=== PATIENT | female | born 1985 | race Caucasian/White ===

== ENCOUNTER 2020-04-30 20:24 | Inpatient (IN) | payer BC ==
[2020-04-30 22:20] LABS: BASO % 0.5 % (0-2.0); EOS % 1.7 % (0-4.5); HEMATOCRIT 41.8 % (32.4-45.2); HEMOGLOBIN 13.7 GM/dL (10.7-15.3); LYMPH % 40.1 % (8-40); MCH 28.2 pg (25.7-33.7); MCHC 32.8 g/dl (32.0-36.0); MEAN PLT VOLUME 8.6 fl (7.5-11.1); MONO % 5.2 % (3.8-10.2); NEUT % 52.5 % (42.8-82.8); PLATELET COUNT 204 K/MM3 (134-434); RBC 4.87 M/mm3 (3.60-5.2); RDW 13.5 % (11.6-15.6); WHITE BLOOD COUNT 7.4 K/mm3 (4.0-10.0)
[2020-04-30 22:31] LABS: PROTHROMBIN TIME (PATIENT) 12.3 SEC (9.7-13.0)
[2020-04-30 22:33] LABS: ACTIVATED PTT 33.4 SECONDS (25.2-36.5)
[2020-04-30 22:39] LABS: POTASSIUM 4.2 mmol/L (3.5-5.1)
[2020-04-30 22:41] LABS: CALCIUM 9.3 mg/dL (8.5-10.1)
[2020-04-30 22:42] LABS: BLOOD UREA NITROGEN 8.1 mg/dL (7-18)
[2020-04-30 22:45] LABS: CREATININE 0.6 mg/dL (0.55-1.3)
[2020-04-30 22:46] LABS: BILIRUBIN,TOTAL 0.1 mg/dL (0.2-1)
[2020-04-30 22:47] LABS: TOT PROT 7.6 g/dl (6.4-8.2)
[2020-05-01] MEDS ORDERED: ACETAMINOPHEN 325 MG TABLET (FP) PO ONE (00:08)
[2020-05-01] MEDS ORDERED: ACETAMINOPHEN 325 MG TABLET (FP) ONE ×2 (00:10→14:11)
[2020-05-01] MEDS ORDERED: HEPARIN NA (PORCINE) 5,000 UNITS/ML 1ML VIAL IVPUSH ONE (01:29)
[2020-05-01] MEDS ORDERED: HEPARIN NA (PORCINE) 5,000 UNITS/ML 1ML VIAL ONE (01:44)
[2020-05-01] MEDS ORDERED: HEPARIN NA (PORCINE) 5,000 UNITS/ML 1ML VIAL IVPUSH PRN ×2 (03:22)
[2020-05-01] MEDS ORDERED: HEPARIN INFUSION - 25,000 UNITS/500 ML INFUS.BAG IVPB ONE (03:32)
[2020-05-01] MEDS: HEPARIN INFUSION - 25,000 UNITS/500 ML INFUS.BAG IVPB SCH ×2 (03:38→21:02)
[2020-05-01 06:01] LABS: HEMATOCRIT 41.5 % (32.4-45.2); HEMOGLOBIN 13.2 GM/dL (10.7-15.3); MCH 27.3 pg (25.7-33.7); MCHC 31.8 g/dl (32.0-36.0); MEAN CELL VOLUME 85.9 fl (80-96); MEAN PLT VOLUME 8.6 fl (7.5-11.1); PLATELET COUNT 194 K/MM3 (134-434); RBC 4.84 M/mm3 (3.60-5.2); RDW 13.3 % (11.6-15.6); WHITE BLOOD COUNT 7.5 K/mm3 (4.0-10.0)
[2020-05-01] MEDS ORDERED: ACETAMINOPHEN 500 MG TABLET (FP) ONE (06:27)
[2020-05-01] MEDS: ACETAMINOPHEN 500 MG TABLET (FP) PO PRN ×2 (06:32→18:52)
[2020-05-01 08:22] LABS: POTASSIUM 3.9 mmol/L (3.5-5.1)
[2020-05-01 08:24] LABS: CALCIUM 9.1 mg/dL (8.5-10.1)
[2020-05-01 08:25] LABS: BLOOD UREA NITROGEN 6.2 mg/dL (7-18)
[2020-05-01 08:28] LABS: CREATININE 0.6 mg/dL (0.55-1.3)
[2020-05-01 12:30] LABS: PHOSPHOROUS 3.6 mg/dL (2.5-4.9)
[2020-05-01 17:00] VITALS: BMI 30.4
[2020-05-02] MEDS: HEPARIN INFUSION - 25,000 UNITS/500 ML INFUS.BAG IVPB SCH (04:35)
[2020-05-02 11:37] LABS: HEMATOCRIT 41.4 % (32.4-45.2); HEMOGLOBIN 13.4 GM/dL (10.7-15.3); MCHC 32.4 g/dl (32.0-36.0); MEAN CELL VOLUME 86.4 fl (80-96); MEAN PLT VOLUME 8.4 fl (7.5-11.1); PLATELET COUNT 201 K/MM3 (134-434); RDW 13.3 % (11.6-15.6); WHITE BLOOD COUNT 6.3 K/mm3 (4.0-10.0)
[2020-05-02 11:54] LABS: POTASSIUM 4.8 mmol/L (3.5-5.1)
[2020-05-02 11:55] LABS: CALCIUM 9.4 mg/dL (8.5-10.1)
[2020-05-02 11:56] LABS: BLOOD UREA NITROGEN 9.8 mg/dL (7-18); MAGNESIUM 2.3 mg/dL (1.8-2.4)
[2020-05-02 11:59] LABS: CREATININE 0.6 mg/dL (0.55-1.3)
[2020-05-02] MEDS: ACETAMINOPHEN 500 MG TABLET (FP) PO PRN (14:48)
[2020-05-03] MEDS: HEPARIN INFUSION - 25,000 UNITS/500 ML INFUS.BAG IVPB SCH ×2 (03:30→12:00)
[2020-05-03] MEDS: ACETAMINOPHEN 500 MG TABLET (FP) PO PRN ×3 (05:49→22:04)
[2020-05-03] MEDS: PREGABALIN 25 MG CAPSULE PO SCH ×2 (17:40→22:02)
[2020-05-04] MEDS: HEPARIN INFUSION - 25,000 UNITS/500 ML INFUS.BAG IVPB SCH (05:34)
[2020-05-04] MEDS: PREGABALIN 25 MG CAPSULE PO SCH ×2 (05:34→13:50)
[2020-05-04 14:09] VITALS: BP 132/64; PULSE 95; TEMP 98.5
[2020-05-04] MEDS ORDERED: ENOXAPARIN NA (PORCINE) 80 MG/0.8 ML DISP.SYRIN SQ SCH (17:15)
== END 2020-05-04 19:08 | disposition home or self-care (01) | DRG 299 ==
LOC: JER 20:24 → JERBED 22:11 → J7W 05-01 15:58
PROVIDERS: ADMIT Hospitalist; ATTEND Internal Medicine
DX: I82.621 Acute embolism and thrombosis of deep veins of right upper extremity (principal); G93.5 Compression of brain; E88.02 Plasminogen deficiency; D68.59 Other primary thrombophilia; G43.909 Migraine, unspecified, not intractable, without status migrainosus; Z86.73 Personal history of transient ischemic attack (TIA), and cerebral infarction without residual deficits
CPT/HCPCS: 36415; 70496-TC; 70498-TC; 70551-TC; 71045-TC-FY; 71046-TC-FY; 72141-TC; 80048; 80053; 80061; 82272; 83036; 83721; 83735; 84100; 84703; 85025; 85027; 85610; 85730; 86850; 86900; 86901; 93005; 93010; 93971; 97116-GP; 97161-GP; 99285-25; C9803; J1644; U0003

== ENCOUNTER 2020-05-24 10:40 | Inpatient (IN) | payer BC ==
[2020-05-24 10:55] VITALS: BMI 30.2
[2020-05-24 14:10] LABS: BASO % 0.5 % (0-2.0); HEMATOCRIT 40.1 % (32.4-45.2); HEMOGLOBIN 13.4 GM/dL (10.7-15.3); LYMPH % 23.7 % (8-40); MCH 28.7 pg (25.7-33.7); MCHC 33.3 g/dl (32.0-36.0); MEAN CELL VOLUME 86.2 fl (80-96); MEAN PLT VOLUME 8.5 fl (7.5-11.1); MONO % 9.1 % (3.8-10.2); NEUT % 65.7 % (42.8-82.8); PLATELET COUNT 189 K/MM3 (134-434); RBC 4.66 M/mm3 (3.60-5.2); RDW 13.1 % (11.6-15.6); WHITE BLOOD COUNT 4.7 K/mm3 (4.0-10.0)
[2020-05-24 14:16] LABS: INR 1.13 (0.83-1.09); PROTHROMBIN TIME (PATIENT) 13.8 SEC (9.7-13.0)
[2020-05-24 14:19] LABS: ACTIVATED PTT 51.1 SECONDS (25.2-36.5)
[2020-05-24 14:27] LABS: CHLORIDE 106 mmol/L (98-107); POTASSIUM 4.2 mmol/L (3.5-5.1); SODIUM 138 mmol/L (136-145)
[2020-05-24 14:29] LABS: CALCIUM 9.2 mg/dL (8.5-10.1)
[2020-05-24 14:30] LABS: ALBUMIN 4.1 g/dl (3.4-5.0); ANION GAP 5 MMOL/L (8-16); BLOOD UREA NITROGEN 13.6 mg/dL (7-18); CO2 27 mmol/L (21-32); GLUCOSE,RANDOM 83 mg/dL (74-106)
[2020-05-24 14:33] LABS: CREATININE 0.7 mg/dL (0.55-1.3); SGOT/AST 15 U/L (15-37); SGPT/ALT 75 U/L (13-61)
[2020-05-24 14:34] LABS: BILIRUBIN,TOTAL 0.2 mg/dL (0.2-1)
[2020-05-24 14:35] LABS: ALK PHOS 61 U/L (45-117)
[2020-05-24] MEDS ORDERED: ACETAMINOPHEN 1000 MG/100 ML VIAL (NON FORMULARY) IVPB ONE ×2 (15:48→23:20)
[2020-05-24] MEDS ORDERED: METOCLOPRAMIDE HCL INJECTION 10 MG/2 ML VIAL IVPB ONE (15:48)
[2020-05-24] MEDS ORDERED: METOCLOPRAMIDE HCL INJECTION 10 MG/2 ML VIAL ONE (15:51)
[2020-05-24] MEDS ORDERED: ACETAMINOPHEN INJECTION 100 ML IVPB ONE (15:51)
[2020-05-24] MEDS ORDERED: guaiFENesin/CODEINE 10 ML UNIT-DOSE CUPS PO ONE (16:12)
[2020-05-24] MEDS ORDERED: guaiFENesin/D-METHORPHAN HB 10 ML UNIT-DOSE CUPS ONE (16:18)
[2020-05-24 16:55] LABS: LDH 147 U/L (84-246)
[2020-05-24] MEDS ORDERED: ALBUTEROL SO4 HFA INHALER IH PRN (18:48)
[2020-05-24] MEDS ORDERED: DEXAMETHASONE SOD PHOSPHATE 4 MG/1 ML VIAL IVPUSH ONE (18:55)
[2020-05-24] MEDS ORDERED: DEXAMETHASONE SOD PHOSPHATE 10 MG/1 ML VIAL ONE (19:01)
[2020-05-24] MEDS ORDERED: ZINC SULFATE 220 MG CAPSULE (FP) ONE (21:54)
[2020-05-24] MEDS ORDERED: ENOXAPARIN NA (PORCINE) 80 MG/0.8 ML DISP.SYRIN SQ ONE (21:54)
[2020-05-24] MEDS ORDERED: ASCORBIC ACID 500 MG TABLET (FP) ONE (21:55)
[2020-05-24] MEDS: ASCORBIC ACID 500 MG TABLET (FP) PO SCH (22:00)
[2020-05-24] MEDS: ZINC SULFATE 220 MG CAPSULE (FP) PO SCH (22:00)
[2020-05-24] MEDS: ENOXAPARIN NA (PORCINE) 80 MG/0.8 ML DISP.SYRIN SQ SCH (22:00)
[2020-05-25] MEDS ORDERED: ACETAMINOPHEN INJECTION 100 ML IVPB ONE (00:03)
[2020-05-25] MEDS ORDERED: guaiFENesin/CODEINE 10 ML UNIT-DOSE CUPS PO ONE (02:45)
[2020-05-25] MEDS ORDERED: guaiFENesin/CODEINE 5 ML UNIT-DOSE CUPS PO ONE (03:05)
[2020-05-25 06:41] VITALS: PULSE 88
[2020-05-25 06:41] LABS: BASO % 0.3 % (0-2.0); EOS % 0.1 % (0-4.5); HEMATOCRIT 39.6 % (32.4-45.2); HEMOGLOBIN 13.4 GM/dL (10.7-15.3); LYMPH % 19.7 % (8-40); MCH 29.1 pg (25.7-33.7); MCHC 33.8 g/dl (32.0-36.0); MEAN PLT VOLUME 8.3 fl (7.5-11.1); MONO % 6.2 % (3.8-10.2); NEUT % 73.7 % (42.8-82.8); PLATELET COUNT 196 K/MM3 (134-434); RDW 13.2 % (11.6-15.6); WHITE BLOOD COUNT 3.9 K/mm3 (4.0-10.0)
[2020-05-25 06:44] LABS: INR 1.11 (0.83-1.09); PROTHROMBIN TIME (PATIENT) 13.6 SEC (9.7-13.0)
[2020-05-25 06:47] LABS: ACTIVATED PTT 43.7 SECONDS (25.2-36.5)
[2020-05-25 06:57] LABS: POTASSIUM 4.4 mmol/L (3.5-5.1)
[2020-05-25 07:03] LABS: CALCIUM 9.1 mg/dL (8.5-10.1)
[2020-05-25 07:04] LABS: BLOOD UREA NITROGEN 8.4 mg/dL (7-18); MAGNESIUM 2.2 mg/dL (1.8-2.4)
[2020-05-25 07:07] LABS: CREATININE 0.6 mg/dL (0.55-1.3); PHOSPHOROUS 3.8 mg/dL (2.5-4.9)
[2020-05-25 07:08] LABS: BILIRUBIN,TOTAL 0.2 mg/dL (0.2-1)
[2020-05-25 07:09] LABS: TOT PROT 7.9 g/dl (6.4-8.2)
[2020-05-25] MEDS ORDERED: ASCORBIC ACID 500 MG TABLET (FP) ONE (09:03)
[2020-05-25] MEDS ORDERED: ZINC SULFATE 220 MG CAPSULE (FP) ONE (09:03)
[2020-05-25] MEDS ORDERED: DEXAMETHASONE SOD PHOSPHATE 10 MG/1 ML VIAL ONE (09:03)
[2020-05-25] MEDS ORDERED: ENOXAPARIN NA (PORCINE) 80 MG/0.8 ML DISP.SYRIN SQ ONE (09:04)
[2020-05-25] MEDS ORDERED: CHOLECALCIFEROL (VIT D3) 1,000 UNIT (25 MCG) TABLET ONE (09:04)
[2020-05-25] MEDS: ZINC SULFATE 220 MG CAPSULE (FP) PO SCH (09:31)
[2020-05-25] MEDS: ACETAMINOPHEN 1000 MG/100 ML VIAL (NON FORMULARY) IVPB ONE ×2 (09:31→09:33)
[2020-05-25] MEDS: ASCORBIC ACID 500 MG TABLET (FP) PO SCH (09:31)
[2020-05-25] MEDS: ENOXAPARIN NA (PORCINE) 80 MG/0.8 ML DISP.SYRIN SQ SCH (09:31)
[2020-05-25] MEDS ORDERED: DEXAMETHASONE SOD PHOSPHATE 4 MG/1 ML VIAL IVPUSH SCH (10:00)
[2020-05-25] MEDS ORDERED: CHOLECALCIFEROL (VIT D3) 1,000 UNIT (25 MCG) TABLET PO SCH (10:00)
[2020-05-25 11:02] VITALS: BP 106/56; TEMP 98.2
== END 2020-05-25 11:00 | disposition home or self-care (01) | DRG 204 ==
LOC: JER 10:40 → JERBED 17:38
PROVIDERS: ADMIT Internal Medicine; ATTEND Internal Medicine
DX: R05 Cough (principal); G93.5 Compression of brain; I82.721 Chronic embolism and thrombosis of deep veins of right upper extremity; E88.02 Plasminogen deficiency; R50.9 Fever, unspecified; R00.0 Tachycardia, unspecified; R06.02 Shortness of breath; G43.909 Migraine, unspecified, not intractable, without status migrainosus; R59.1 Generalized enlarged lymph nodes; Z86.73 Personal history of transient ischemic attack (TIA), and cerebral infarction without residual deficits
CPT/HCPCS: 36415; 71046-TC-FY; 71275-TC; 80053; 82550; 82728; 83615; 83735; 84100; 84484; 85025; 85379; 85610; 85730; 86140; 93005; 93010; 99285-25; C9803; J0131; Q9967; U0003

== ENCOUNTER 2020-12-10 11:05 | Emergency (ER) | payer BC ==
[2020-12-10 11:14] VITALS: BMI 29.6
[2020-12-10] MEDS ORDERED: ACETAMINOPHEN 1000 MG/100 ML VIAL (NON FORMULARY) IVPB ONE (11:45)
[2020-12-10] MEDS ORDERED: SODIUM CHLORIDE 0.9% 500 ML INFUS.BAG IV ONE (11:45)
[2020-12-10] MEDS ORDERED: ACETAMINOPHEN INJECTION 100 ML IVPB ONE (12:32)
[2020-12-10 12:36] LABS: BASO % 0.5 % (0-2.0); EOS % 1.4 % (0-4.5); HEMATOCRIT 43.4 % (32.4-45.2); HEMOGLOBIN 14.7 GM/dL (10.7-15.3); LYMPH % 33.7 % (8-40); MCH 28.3 pg (25.7-33.7); MCHC 33.9 g/dl (32.0-36.0); MEAN CELL VOLUME 83.4 fl (80-96); MEAN PLT VOLUME 7.9 fl (7.5-11.1); MONO % 5.9 % (3.8-10.2); NEUT % 58.5 % (42.8-82.8); PLATELET COUNT 214 10^3/uL (134-434); RBC 5.21 M/mm3 (3.60-5.2); RDW 13.5 % (11.6-15.6); WHITE BLOOD COUNT 6.4 K/mm3 (4.0-10.0)
[2020-12-10 12:59] LABS: CHLORIDE 106 mmol/L (98-107); SODIUM 139 mmol/L (136-145)
[2020-12-10 13:04] LABS: CALCIUM 9.1 mg/dL (8.5-10.1)
[2020-12-10 13:05] LABS: ANION GAP 7 MMOL/L (8-16); CO2 26 mmol/L (21-32); GLUCOSE,RANDOM 87 mg/dL (74-106); SGOT/AST 8 U/L (15-37); SGPT/ALT 18 U/L (13-61)
[2020-12-10 13:07] LABS: BILIRUBIN,TOTAL 0.2 mg/dL (0.2-1); CREATININE 0.8 mg/dL (0.55-1.3); TOT PROT 7.9 g/dl (6.4-8.2)
[2020-12-10 13:08] LABS: ALK PHOS 70 U/L (45-117)
[2020-12-10 13:19] LABS: INR 1.03 (0.83-1.09); PROTHROMBIN TIME (PATIENT) 12.5 SEC (9.7-13.0)
[2020-12-10] MEDS ORDERED: METOCLOPRAMIDE HCL INJECTION 10 MG/2 ML VIAL IVPUSH ONE (13:35)
[2020-12-10] MEDS ORDERED: METOCLOPRAMIDE HCL INJECTION 10 MG/2 ML VIAL ONE (13:50)
[2020-12-10 16:36] VITALS: BP 114/65; PULSE 68; TEMP 97.2
== END 2020-12-10 16:45 | disposition home or self-care (01) ==
LOC: JER 11:05
PROC: 3E0333Z Introduction of Anti-inflammatory into Peripheral Vein, Percutaneous Approach (ICD-10-PCS; principal; 2020-12-10)
PROC: 3E033GC Introduction of Other Therapeutic Substance into Peripheral Vein, Percutaneous Approach (ICD-10-PCS; 2020-12-10)
DX: R07.89 Other chest pain (principal)
CPT/HCPCS: 36415; 71045-TC-FY; 80053; 82550; 84484; 84703; 85025; 85379; 85610; 85730; 93005; 93010; 99285-25; J0131

== ENCOUNTER 2022-03-06 16:07 | Inpatient (IN) | payer BC ==
[2022-03-06 16:59] VITALS: BMI 30.8
[2022-03-06] MEDS ORDERED: ONDANSETRON 4 MG/2 ML VIAL IVPUSH ONE (17:49)
[2022-03-06] MEDS ORDERED: MECLIZINE HCL 25 MG TABLET (FP) PO ONE (17:49)
[2022-03-06] MEDS ORDERED: ACETAMINOPHEN 1000 MG/100 ML BAG IVPB ONE (17:51)
[2022-03-06] MEDS ORDERED: ONDANSETRON 4 MG/2 ML VIAL ONE (18:21)
[2022-03-06] MEDS ORDERED: MECLIZINE HCL 25 MG TABLET (FP) ONE (18:21)
[2022-03-06] MEDS ORDERED: ACETAMINOPHEN INJECTION 100 ML IVPB ONE (18:21)
[2022-03-06] MEDS ORDERED: METOCLOPRAMIDE HCL INJECTION 10 MG/2 ML VIAL IVPUSH ONE (18:22)
[2022-03-06 18:30] LABS: BASO % 0.2 % (0-2.0); EOS % 0.9 % (0-4.5); HEMATOCRIT 41.1 % (32.4-45.2); HEMOGLOBIN 13.8 GM/dL (10.7-15.3); LYMPH % 31.7 % (8-40); MCH 28.6 pg (25.7-33.7); MCHC 33.6 g/dl (32.0-36.0); MEAN CELL VOLUME 85.2 fl (80-96); MEAN PLT VOLUME 7.7 fl (7.5-11.1); MONO % 4.9 % (3.8-10.2); NEUT % 62.3 % (42.8-82.8); PLATELET COUNT 201 10^3/uL (134-434); RBC 4.83 M/mm3 (3.60-5.2); RDW 13.4 % (11.6-15.6); WHITE BLOOD COUNT 8.6 K/mm3 (4.0-10.0)
[2022-03-06 18:38] LABS: INR 1.1 (0.83-1.09); PROTHROMBIN TIME (PATIENT) 12.7 SEC (9.7-13.0)
[2022-03-06] MEDS ORDERED: METOCLOPRAMIDE HCL INJECTION 10 MG/2 ML VIAL ONE (18:39)
[2022-03-06 18:40] LABS: ACTIVATED PTT 35.6 SECONDS (25.2-36.5)
[2022-03-06 18:56] LABS: CHLORIDE 108 mmol/L (98-107); SODIUM 140 mmol/L (136-145)
[2022-03-06 18:58] LABS: CALCIUM 9.6 mg/dL (8.5-10.1)
[2022-03-06 18:59] LABS: ALBUMIN 3.9 g/dl (3.4-5.0); ANION GAP 7 MMOL/L (8-16); BLOOD UREA NITROGEN 11.7 mg/dL (7-18); CO2 26 mmol/L (21-32); GLUCOSE,RANDOM 91 mg/dL (74-106)
[2022-03-06 19:02] LABS: CREATININE 0.6 mg/dL (0.55-1.3); SGOT/AST 13 U/L (15-37); SGPT/ALT 18 U/L (13-61)
[2022-03-06 19:03] LABS: BILIRUBIN,TOTAL 0.1 mg/dL (0.2-1); TOT PROT 7.7 g/dl (6.4-8.2)
[2022-03-06 19:04] LABS: ALK PHOS 60 U/L (45-117)
[2022-03-06] MEDS ORDERED: ASPIRIN 325 MG TABLET PO ONE (21:22)
[2022-03-06] MEDS ORDERED: APIXABAN 2.5 MG TABLET PO SCH (22:00)
[2022-03-06] MEDS ORDERED: ASPIRIN 81 MG CHEWABLE TABLETS ONE (22:22)
[2022-03-06] MEDS ORDERED: APIXABAN 2.5 MG TABLET ONE (22:22)
[2022-03-07 00:27] LABS: HCG,QUALITATIVE URINE Negative
[2022-03-07 00:59] LABS: URINE APPEARANCE CLEAR; URINE BILIRUBIN NEGATIVE (NEGATIVE); URINE COLOR YELLOW; URINE GLUCOSE (UA) NEGATIVE (NEGATIVE); URINE KETONE NEGATIVE (NEGATIVE); URINE LEUK ESTERASE NEGATIVE (NEGATIVE); URINE NITRITE NEGATIVE (NEGATIVE); URINE PROTEIN NEGATIVE (NEGATIVE); URINE UROBILINOGEN 0.2 mg/dL (0.2-1.0)
[2022-03-07 05:52] LABS: BASO % 0.4 % (0-2.0); EOS % 1.8 % (0-4.5); HEMATOCRIT 39.5 % (32.4-45.2); HEMOGLOBIN 12.9 GM/dL (10.7-15.3); LYMPH % 43.2 % (8-40); MCH 27.8 pg (25.7-33.7); MCHC 32.6 g/dl (32.0-36.0); MEAN CELL VOLUME 85.4 fl (80-96); MEAN PLT VOLUME 8.4 fl (7.5-11.1); MONO % 6.8 % (3.8-10.2); NEUT % 47.8 % (42.8-82.8); PLATELET COUNT 193 10^3/uL (134-434); RBC 4.63 M/mm3 (3.60-5.2); RDW 13.4 % (11.6-15.6); WHITE BLOOD COUNT 6.9 K/mm3 (4.0-10.0)
[2022-03-07 06:22] LABS: CALCIUM 8.4 mg/dL (8.5-10.1)
[2022-03-07 06:23] LABS: ALBUMIN 3.3 g/dl (3.4-5.0); BLOOD UREA NITROGEN 13.5 mg/dL (7-18)
[2022-03-07 06:28] LABS: BILIRUBIN,TOTAL 0.3 mg/dL (0.2-1); CREATININE 0.7 mg/dL (0.55-1.3); PHOSPHOROUS 4.1 mg/dL (2.5-4.9); TOT PROT 6.7 g/dl (6.4-8.2)
[2022-03-07 06:40] LABS: INR 1.28 (0.83-1.09); PROTHROMBIN TIME (PATIENT) 14.8 SEC (9.7-13.0)
[2022-03-07 07:34] LABS: ERYTHROCYTE SEDIMENTATION RATE 13 mm/hr (0-20)
[2022-03-07] MEDS ORDERED: MECLIZINE HCL 25 MG TABLET (FP) PO PRN (08:38)
[2022-03-07] MEDS ORDERED: MECLIZINE HCL 25 MG TABLET (FP) PO ONE (09:02)
[2022-03-07] MEDS ORDERED: MECLIZINE HCL 25 MG TABLET (FP) ONE (09:33)
[2022-03-07 09:42] VITALS: RESP 16
[2022-03-07] MEDS ORDERED: ENOXAPARIN NA (PORCINE) 40 MG/0.4 ML DISP.SYRIN SQ SCH (10:00)
[2022-03-07 11:56] VITALS: BP 106/59; PULSE 82; TEMP 98.2
== END 2022-03-07 11:59 | disposition home or self-care (01) | DRG 103 ==
LOC: JER 16:07 → JERBED 20:55
PROVIDERS: ADMIT Family Medicine; ATTEND Nurse Practitioner Family
DX: G43.109 Migraine with aura, not intractable, without status migrainosus (principal); R42 Dizziness and giddiness; R53.1 Weakness
CPT/HCPCS: 36415; 70450-TC; 70496-TC; 70498-TC; 70551-TC; 71046-TC-FY; 80053; 80061; 81003; 83036; 83735; 84100; 84443; 84484; 84703; 85025; 85610; 85651; 85730; 86140; 93005; 93010; 99285-25; C9803-CS; G0378; Q9967; U0003; U0005

== ENCOUNTER 2023-09-05 10:56 | Emergency (ER) | payer BC ==
[2023-09-05 11:38] VITALS: BMI 32.1
[2023-09-05 12:46] LABS: BASO % 0.3 % (0-2.0); EOS % 1.2 % (0-4.5); HEMOGLOBIN 13.9 GM/dL (10.7-15.3); LYMPH % 28.5 % (8-40); MCH 28.4 pg (25.7-33.7); MCHC 33.2 g/dl (32.0-36.0); MEAN CELL VOLUME 85.5 fl (80-96); MEAN PLT VOLUME 8.3 fl (7.5-11.1); MONO % 4.7 % (3.8-10.2); NEUT % 65.3 % (42.8-82.8); PLATELET COUNT 219 10^3/uL (134-434); RBC 4.91 M/mm3 (3.60-5.2); RDW 13.7 % (11.6-15.6); WHITE BLOOD COUNT 7.4 K/mm3 (4.0-10.0)
[2023-09-05 12:53] LABS: INR 1.27 (0.83-1.09); PROTHROMBIN TIME (PATIENT) 14.7 SEC (9.7-13.0)
[2023-09-05 12:56] LABS: ACTIVATED PTT 32.6 SECONDS (25.2-36.5)
[2023-09-05 13:07] LABS: POTASSIUM 4.6 mmol/L (3.5-5.1)
[2023-09-05 13:09] LABS: CALCIUM 9.6 mg/dL (8.5-10.1)
[2023-09-05 13:10] LABS: ALBUMIN 3.8 g/dl (3.4-5.0); BLOOD UREA NITROGEN 14.1 mg/dL (7-18)
[2023-09-05 13:13] LABS: CREATININE 0.6 mg/dL (0.55-1.3)
[2023-09-05 13:14] LABS: BILIRUBIN,TOTAL 0.3 mg/dL (0.2-1); TOT PROT 7.8 g/dl (6.4-8.2)
[2023-09-05 13:18] LABS: N-TERMINAL BNP 23.1 pg/ml (5-125)
[2023-09-05 15:46] VITALS: BP 137/50; PULSE 95; RESP 19; TEMP 98.3
== END 2023-09-05 17:47 | disposition home or self-care (01) ==
LOC: JER 10:56
DX: R06.02 Shortness of breath (principal); R53.83 Other fatigue; Z20.822 Contact with and (suspected) exposure to COVID-19
CPT/HCPCS: 0241U-QW; 36415; 71045-TC-FY; 71275-TC; 80053; 83605; 83880; 84484; 84703; 85025; 85610; 85730; 86850; 86900; 86901; 93005; 93010; 93971; 99285-25; Q9967

== ENCOUNTER 2024-11-07 15:21 | Emergency (ER) | payer BC ==
[2024-11-07 15:42] VITALS: BP 122/66; RESP 16; TEMP 98.6; BMI 31.5
[2024-11-07] MEDS ORDERED: ACETAMINOPHEN INJECTION 100 ML ONE (16:14)
[2024-11-07 16:41] LABS: ABSOLUTE IMMATURE GRANULOCYTES 0.06 x10^3/uL (0.0-0.031); BASOPHILS # 0.05 x10^3/uL (0.01-0.08); EOSINOPHIL % 0.6 % (0.7-5.8); EOSINOPHILS # 0.06 x10^3/uL (0.04-0.36); HEMATOCRIT 42.2 % (34.1-44.9); HEMOGLOBIN 13.7 g/dL (11.2-15.7); MCHC 32.5 g/dl (32.2-35.5); MEAN CELL VOLUME 86.3 fl (79.4-94.8); MEAN PLT VOLUME 10.3 fl (9.4-12.3); MONOCYTE # 0.53 x10^3/uL (0.24-0.86); MONOCYTE % 5.6 % (4.7-12.5); PLATELET COUNT 248 x10^3/uL (182-369); RDW 13.2 % (12.1-16.8)
[2024-11-07] MEDS: SODIUM CHLORIDE 0.9% 500 ML INFUS.BAG IV ONE (16:41)
[2024-11-07] MEDS: ACETAMINOPHEN 1000 MG/100 ML BAG IVPB ONE (16:41)
[2024-11-07 16:48] LABS: PROTHROMBIN TIME (PATIENT) 10.9 SEC (9.7-13.0)
[2024-11-07 16:49] VITALS: PULSE 73
[2024-11-07 16:51] LABS: ACTIVATED PTT 29.2 SECONDS (25.2-36.5)
[2024-11-07 17:04] LABS: CHLORIDE 107 mmol/L (98-107); POTASSIUM 4.6 mmol/L (3.5-5.1); SODIUM 140 mmol/L (136-145)
[2024-11-07 17:05] LABS: CALCIUM 9.6 mg/dL (8.5-10.1)
[2024-11-07 17:06] LABS: ANION GAP 9 mmol/L (4-13); CO2 24 mmol/L (21-32)
[2024-11-07 17:08] LABS: BLOOD UREA NITROGEN 9.5 mg/dL (7-18); GLUCOSE,RANDOM 95 mg/dL (74-106)
[2024-11-07 17:09] LABS: CREATININE 0.7 mg/dL (0.55-1.3); SGPT/ALT 20 U/L (13-61)
[2024-11-07 17:10] LABS: CHOLESTEROL 132 mg/dL (50-200); SGOT/AST 22 U/L (15-37)
[2024-11-07 17:11] LABS: TOT PROT 7.8 g/dl (6.4-8.2)
[2024-11-07 17:12] LABS: BILIRUBIN,TOTAL 0.2 mg/dL (0.2-1); LDL CHOLESTEROL (ONLY SJRH) 77 mg/dL (5-100)
[2024-11-07 17:13] LABS: ALK PHOS 68 U/L (45-117); HDL CHOLESTEROL 42 mg/dL (40-60)
[2024-11-07] MEDS ORDERED: METOCLOPRAMIDE HCL INJECTION 10 MG/2 ML VIAL ONE (17:24)
[2024-11-07] MEDS: METOCLOPRAMIDE HCL INJECTION 10 MG/2 ML VIAL IVPUSH ONE (17:36)
[2024-11-07 18:30] LABS: HIV INTERPRETATION NEGATIVE (NEGATIVE)
[2024-11-07 18:31] LABS: HCV DIAGNOSTIC IN-HOUSE W/RFLX NON-REACTIVE (NONREACTIVE)
== END 2024-11-07 18:34 | disposition home or self-care (01) ==
LOC: JER 15:21
PROC: 3E033NZ Introduction of Analgesics, Hypnotics, Sedatives into Peripheral Vein, Percutaneous Approach (ICD-10-PCS; principal; 2024-11-07)
PROC: 3E033GC Introduction of Other Therapeutic Substance into Peripheral Vein, Percutaneous Approach (ICD-10-PCS; 2024-11-07)
DX: G44.209 Tension-type headache, unspecified, not intractable (principal); R53.1 Weakness; R42 Dizziness and giddiness
CPT/HCPCS: 0241U-QW; 36415; 70450-TC; 80053; 80061; 82550; 82553; 82962; 83036; 84484; 84703; 85025; 85610; 85730; 86803; 86850; 86900; 86901; 87389; 93005; 93010; 99285-25